=== PATIENT | female | born 1960 | race Caucasian/White ===

== ENCOUNTER 2021-05-29 12:55 | Emergency (ER) | payer OTHER ==
[~2021-05-29] VITALS: Ht 167.6 cm; Wt 112.5 kg
[2021-05-29] MEDS ORDERED: DILTIAZEM ER180 M2 PO (13:41)
[2021-05-29] MEDS ORDERED: LEVO-T50 MCG PO (13:42)
[2021-05-29] MEDS ORDERED: PROTONIX 20 MG20 M1 PO (13:42)
[2021-05-29] MEDS ORDERED: FOLIC ACID PO (13:42)
[2021-05-29] MEDS ORDERED: PLAQUENIL200 MG PO (13:42)
[2021-05-29] MEDS ORDERED: CIPRO500 M1 PO (13:43)
[2021-05-29] MEDS ORDERED: CITALOPRAM PO (13:43)
[2021-05-29] MEDS ORDERED: TRELEGY ELLIPT1 EACH INH (13:44)
[2021-05-29] MEDS ORDERED: SIMVASTATIN80 MG PO (13:44)
[2021-05-29] MEDS ORDERED: PREDNISONE TAPER (13:44)
[2021-05-29] MEDS ORDERED: MIRAPEX 0.250.25 M1 PO (13:45)
[2021-05-29] MEDS ORDERED: SINGULAIR 10 MG10 MG PO (13:45)
[2021-05-29] MEDS ORDERED: METHOTREXATE PO (13:46)
[2021-05-29] MEDS ORDERED: ALBUTEROL INH (13:47)
[2021-05-29] MEDS ORDERED: TRIAMTERENE-HC1 EAC2 PO (13:47)
[2021-05-29] MEDS ORDERED: MELOXICAM15 MG PO (13:47)
[2021-05-29] MEDS ORDERED: VIT D2 PO (13:48)
[2021-05-29] MEDS ORDERED: PROMETH/COD PO (13:49)
[2021-05-29 15:08] LABS: HEMOGLOBIN 12.1 gm/dL (12.0-15.0); MCH 29.7 pg (26.0-34.0); MCHC 32.8 g/dL (28.0-37.0); MCV 90.6 fL (80.0-100.0); PLATELET COUNT 253 thou/uL (150-400); RBC 4.08 mil/uL (4.20-5.00); RDW 14.5 % (10.5-14.5); WBC 12.9 thou/uL (4.0-11.0)
[2021-05-29 15:17] LABS: ANION GAP 9 mmol/L (7-16); BUN 31 mg/dL (7-18); CALCIUM 8.7 mg/dL (8.5-10.1); CHLORIDE 104 mmol/L (98-107); CO2 25 mmol/L (21-32); CREATININE 1.3 mg/dL (0.6-1.0); GLUCOSE 128 mg/dL (74-106); SODIUM 138 mmol/L (136-145)
[2021-05-29 15:27] LABS: ALBUMIN 3.4 g/dL (3.4-5.0); DIRECT BILIRUBIN 0.1 mg/dL (<0.1-0.2); SGOT 18 U/L (15-37); SGPT 31 U/L (14-59); TOTAL BILIRUBIN 0.5 mg/dL (0.2-1.0); TOTAL PROTEIN 7.2 g/dL (6.4-8.2); TROPONIN-I <0.06 ng/mL (<0.06)
[2021-05-29 15:39] LABS: ABSOLUTE NEUTROPHILS 10.8 thou/uL (1.4-8.2)
[2021-05-29] MEDS ORDERED: PREDNISONE 20 M20 MG PO (17:07)
[2021-05-29] MEDS ORDERED: ALBUTEROL2.5 MG/0.5 INH (17:08)
[2021-05-29 17:14] VITALS: BP 125/57
--- NOTE | 2021-05-29 17:20 | EKG ---
[place] [address] [address] [place] [address] ELECTROCARDIOGRAM REPORT Name: ERIC SMALLS Room #: [facility]P [facility] [id number] Admission: 05/29/21 Attend Phys: Discharge: 05/29/21 Date of : 56 Report #: [id number] [facility] ED Test Date: 2021-05-29 Test Time: 15:00:19 Pat Name: ERIC SMALLS Department: Room: Gender: F Brain Surgeon: estephania : 1960 Requested By: Tonja Garica Order Number: [id number] MD: Luis No Measurements Intervals [place] Rate: 68 P: 43 UT: 163 QRS: 9 QRSD: 93 T: 12 QT: 407 QTc: 433 Interpretive Statements Sinus rhythm Low voltage, precordial leads Compared to ECG 12/25/2009 07:15:14 Low QRS voltage now present Electronically Signed On 05-29-2021 17:20:12 CDT by Luis No [email or web address] <ELECTRONICALLY SIGNED> By: Luis No MD, [facility] 05/29/21 1720 1500 Jovani No MD, FACC /EPI
== END 2021-05-29 17:17 | disposition home or self-care (01) ==
LOC: ER 12:55
PROVIDERS: Emergency Medicine
DX: R05 Cough (principal); R91.1 Solitary pulmonary nodule; I48.91 Unspecified atrial fibrillation; J45.909 Unspecified asthma, uncomplicated; Z88.1 Allergy status to other antibiotic agents; Z88.2 Allergy status to sulfonamides; Z90.710 Acquired absence of both cervix and uterus